=== PATIENT | female | born 1995 | race Caucasian/White ===

== ENCOUNTER 2017-01-19 01:42 | Emergency (ER) | payer OTHER ==
[~2017-01-19 01:42] MED LIST: ACID REDUCER20 MG PO; ALBUTEROL17 GM INH; ENDOCET 5-3251 EACH PO; EPIDRIN; HYDROCODONE/APA1 T16 PO; KEFLEX500 M1 PO; KEFLEX500 MG PO; MOTRIN600 M2 PO; NO MEDICATIONS; NORCO1 TAB 10/3 PO; PHENERGAN PO; PHENERGAN25 M1 PO; PHENERGAN25 MG PO; QVAR7.3 GM INH; REGLAN10 MG PO; SILVADENE TOP; VOLTAREN75 MG PO
[2017-01-19] MEDS ORDERED: POTASSIUM (01:51)
== END 2017-01-19 02:37 | disposition home or self-care (01) ==
LOC: SED 01:42
DX: N20.1 Calculus of ureter (principal); J45.909 Unspecified asthma, uncomplicated; F17.200 Nicotine dependence, unspecified, uncomplicated; Z87.442 Personal history of urinary calculi
CPT/HCPCS: 99283

== ENCOUNTER 2017-03-07 23:27 | Emergency (ER) | payer OTHER ==
[~2017-03-07] VITALS: Ht 175.3 cm; Wt 83.9 kg
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
[~2017-03-07 23:27] MED LIST changes: +POTASSIUM
== END 2017-03-08 02:16 | disposition home or self-care (01) ==
LOC: SED 23:27
DX: S40.012A Contusion of left shoulder, initial encounter (principal); S20.212A Contusion of left front wall of thorax, initial encounter; F17.200 Nicotine dependence, unspecified, uncomplicated; V49.00XA Driver injured in collision with unspecified motor vehicles in nontraffic accident, initial encounter
CPT/HCPCS: 70450; 71020; 72072; 72125; 73030; 99284